=== PATIENT | male | born 1960 | race Caucasian/White ===

== ENCOUNTER → 2016-06-27 | Outpatient (CLI) | payer SELFPAY ==
[~2016-06-27] MED LIST: AZIT250T6 PO; BENZ100C97 PO; CETI10CA19 PO; METO100T5 PO; PRED20TA PO
--- NOTE | 2016-06-28 09:12 | ECHOF ---
DATE OF PROCEDURE June 27, 2016. This is a two-dimensional echo with spectral Doppler, color-flow and M-mode. It was obtained in a patient with shortness of breath and chest pain. Left atrium is dilated. Left ventricle end-diastolic dimension is increased. Left ventricle wall thickness is normal. LV systolic function is normal with ejection fraction of 62%. Right atrium is normal. Right ventricle is normal. Aortic root dimension is normal. Mitral valve is morphologically normal with trace of mitral regurgitation. Aortic valve appears to be normal. Tricuspid valve shows trace of tricuspid regurgitation with mild pulmonary hypertension with estimated pulmonary artery systolic pressure of 38. Pulmonary valve shows no pulmonary insufficiency. There is no pericardial effusion. Inferior vena cava appears to be dilated. IMPRESSION 1. Normal LV systolic function with ejection fraction of 62%. 2. Left atrial dilation. 3. Left ventricular dilation. 4. Trace of mitral regurgitation. 5. Trace of tricuspid regurgitation with mild pulmonary hypertension with estimated pulmonary artery systolic pressure of 38. 6. Abnormal inferior vena cava suggestive of elevated central venous pressure. MTDD
== END ==
LOC: IMA 12:48
PROVIDERS: ATTEND Internal Medicine Cardiovascular Disease
DX: I27.2 Other secondary pulmonary hypertension (principal); I51.7 Cardiomegaly; R93.1 Abnormal findings on diagnostic imaging of heart and coronary circulation; R07.2 Precordial pain
CPT/HCPCS: 93306

== ENCOUNTER → 2016-07-12 | Outpatient (CLI) | payer SELFPAY ==
[~2016-07-12] MED LIST changes: -AZIT250T6 PO; -BENZ100C97 PO; +HYDR-4072 PO; -PRED20TA PO
== END ==
LOC: CATH 08:00
PROVIDERS: ATTEND Internal Medicine Cardiovascular Disease
DX: R69 Illness, unspecified (principal)

== ENCOUNTER → 2016-07-19 | Outpatient (CLI) | payer SELFPAY ==
[~2016-07-19] VITALS: Ht 180.3 cm; Wt 131.8 kg
[~2016-07-19] MED LIST changes: +REGADENOSON 0.4mg/5ml INJECTION IV ONE; +SALINE FLUSH 10ml SYRINGE ONE
--- NOTE | 2016-07-20 19:33 | ADENOSINEF ---
STRESS TEST DATE OF PROCEDURE July 19, 2016 INDICATION Chest pain. PROCEDURE Initially we attempted treadmill. However, patient failed to go even one 1 minute on the treadmill and therefore we changed it to Lexiscan Myoview. IMPRESSION 1. Baseline EKG is normal. 2. He tolerated Lexiscan without difficulty. 3. Hemodynamic response to Lexiscan was appropriate. 4. There were no ischemic EKG changes. 5. Rare PVCs were noted. 6. 12.1 mCi of Myoview was given for rest images and 33 mCi for stress images. 7. Nuclear perfusion images revealed normal coronary perfusion with no scar or ischemia. 8. Quantitative ejection fraction is measured at 55%. MTDD
== END ==
LOC: IMA 07-12 12:02
PROVIDERS: ATTEND Internal Medicine Cardiovascular Disease
DX: R07.2 Precordial pain (principal)
CPT/HCPCS: 93017